=== PATIENT | female | born 1990 | race African-American/Black ===

== ENCOUNTER 2016-06-12 18:37 | Emergency (ER) | payer OTHER ==
[~2016-06-12] VITALS: Ht 157.5 cm; Wt 70.0 kg
[~2016-06-12 18:37] MED LIST: METH500T3 PO; ZOFR4TAB3 SL
[2016-06-12 18:39] VITALS: BP 148/98; PULSE 72; RESP 18; TEMP 98.2; O2SAT 95
[2016-06-12] MEDS ORDERED: CYCL1TAB29 PO (19:25)
[2016-06-12 19:28] LABS: MEAN CORPUSCULAR HGB CONC 36.1 % (32.0-36.0)
[2016-06-12] MEDS ORDERED: ONDANSETRON HCL 4 MG/2 ML VIAL IVP ONE (19:30)
[2016-06-12] MEDS ORDERED: SODIUM CHLORIDE 0.9% FLUSH 10 ML FLUSH IVF PRN (19:30)
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
[2016-06-12 20:14] LABS: AUTOMATED NEUTROPHIL # 6.8 TH/MM3 (1.8-7.7); BASOPHIL # 0.1 TH/MM3 (0-0.2); BASOPHIL % 0.8 % (0.0-2.0); EOSINOPHIL # 0.1 TH/MM3 (0-0.4); EOSINOPHIL % 0.5 % (0.0-4.0); HEMATOCRIT 36.4 % (35.0-46.0); LYMPH % 22.8 % (9.0-44.0); LYMPHOCYTE # 2.5 TH/MM3 (1.0-4.8); MEAN CELL VOLUME 78.4 FL (80.0-100.0); MEAN CORPUSCULAR HEMOGLOBIN 28.3 PG (27.0-34.0); NEUT % 62.9 % (16.0-70.0); PLATELET COUNT 238 TH/MM3 (150-450); RED BLOOD COUNT 4.64 MIL/MM3 (4.00-5.30); RED CELL DISTRIBUTION WIDTH 13.4 % (11.6-17.2); WHITE BLOOD COUNT 10.8 TH/MM3 (4.0-11.0)
[2016-06-12 20:19] LABS: HEMO FLAGS AUTO DIFF
[2016-06-12 20:29] LABS: BICARBONATE 25.1 MEQ/L (21.0-32.0); POTASSIUM 3.7 MEQ/L (3.5-5.1)
[2016-06-12 20:56] LABS: PLATELET ESTIMATE SMEAR NORMAL (NORMAL); PLATELET MORPHOLOGY NORMAL (NORMAL); SCAN/DIFF AUTO DIFF CONFIRMED
[2016-06-12 20:58] LABS: AMPHETAMINE, URINE NEG (NEG); BARBITURATES, URINE NEG (NEG); COCAINE, URINE NEG (NEG)
== END 2016-06-12 22:50 | disposition home or self-care (01) ==
LOC: NEPC 18:37
DX: R10.9 Unspecified abdominal pain (principal); J02.9 Acute pharyngitis, unspecified; R11.2 Nausea with vomiting, unspecified; N83.201 Unspecified ovarian cyst, right side
CPT/HCPCS: 80048; 80307; 84703; 85025; 96374; 99284; J2405